=== PATIENT | female | born 1960 | race Caucasian/White ===

== ENCOUNTER → 2018-06-07 | Outpatient (CLI) | payer OTHER ==
[~2018-06-07] MED LIST: Flonase 0.05% N16 GM; IBUP600 PO; PARO20; PARO20 PO; Polytrim Eye Dr10 ML BOTHEYES
== END ==
LOC: LAB 19:06 → LAB SHORT 19:06
PROVIDERS: Nurse Practitioner Family
DX: R10.2 Pelvic and perineal pain (principal)
CPT/HCPCS: 87625; G0145

== ENCOUNTER → 2018-08-02 | Outpatient (CLI) | payer OTHER | END | disposition home or self-care (01) | LOC: LAB SHORT 07:34 → LAB 07:34 | DX: R87.810 Cervical high risk human papillomavirus (HPV) DNA test positive (principal); R87.89 Other abnormal findings in specimens from female genital organs | CPT/HCPCS: 88305; 88341; 88342 ==